=== PATIENT | male | born 1940 | race Caucasian/White ===

== ENCOUNTER → 2016-08-18 | Outpatient (CLI) | payer BC ==
[~2016-08-18] MED LIST: ACET-1256 PO; ACET-24 PO; ASPEC325 PO; CIPR-255 PO; CLB100 PO; CYAN500T13 PO; IBUP-1050 PO; IRON PO; LISI20TA55 PO; MORP-157 PO; MULT-506 PO; PRLSR20 PO; RXC5 PO; TRAM-10 PO
[2016-08-18 10:44] LABS: BASO % 0.2 %; BASO ABS # 0.01 K/uL (0-0.2); COMPLETE YES; EOS % 7.7 %; HEMATOCRIT 40.6 % (42-52); IG% 0.2 %; LYMPH % 27.1 %; LYMPH ABS # 1.66 K/uL (1.2-3.4); MEAN CELL VOLUME 92.9 fL (80-100); MEAN CORPUSCULAR HEMOGLOBIN 32.5 pg (25-34); MEAN PLATELET VOLUME 9.5 fL (7.4-10.4); MONO % 9.1 %; NEUT % 55.7 %; PLATELET COUNT 216 K/uL (130-400); RED BLOOD COUNT 4.37 M/uL (4.7-6.1); WHITE BLOOD COUNT 6.13 K/uL (4.8-10.8)
[2016-08-18 10:56] LABS: CALCIUM 9.3 mg/dl (8.5-10.1)
[2016-08-18 10:58] LABS: ALT/SGPT 31 U/L (12-78); BLOOD UREA NITROGEN 20 mg/dl (7-18); CARBON DIOXIDE 32 mmol/L (21-32); CHLORIDE 102 mmol/L (98-107); CHOLESTEROL 192 mg/dl (0-200); CREATININE 0.88 mg/dl (0.60-1.40); GLUCOSE 101 mg/dl (70-99); POTASSIUM 4.8 mmol/L (3.5-5.1); SODIUM 138 mmol/L (136-145); TRIGLYCERIDES 102 mg/dl (0-150); VERY LOW DENSITY LIPOPROT CALC 20 mg/dl
[2016-08-18 11:00] LABS: ALB/GLOB RATIO 1.4 (0.9-2); ALKALINE PHOSPHATASE 121 U/L (45-117); AST/SGOT 26 U/L (15-37); HDL CHOLESTEROL 65 mg/dl; LDL CHOLESTEROL CALCULATED 107 mg/dl
== END | disposition home or self-care (01) ==
LOC: C.LABBC 08:54
PROVIDERS: ATTEND Nurse Practitioner Family
DX: I10 Essential (primary) hypertension (principal); K21.9 Gastro-esophageal reflux disease without esophagitis; E78.5 Hyperlipidemia, unspecified; M25.562 Pain in left knee; E66.9 Obesity, unspecified

== ENCOUNTER 2016-10-21 08:37 | Inpatient (IN) | payer BC, OTHER ==
[2016-09-25 09:27] VITALS: BMI 33.0
--- NOTE | 2016-09-25 09:56 | PAT Medication Instructions ---
Service Date Sep 25, 2016. Current Home Medication List Acetaminophen (Tylenol), 2 TAB PO BID PRN for Pain Celecoxib (Celebrex), 1 CAP PO BID Cyanocobalamin (Vitamin B12 500MCG), 1,000 MCG PO QAM Lisinopril/Hctz (Prinzide 20-25MG), 1 TAB PO QAM Multivitamin (Multivitamin), 1 TAB PO QAM Omeprazole (Prilosec), 20 MG PO QAM Tramadol (Ultram), 1-2 TAB PO Q4-6 hr PRN for Pain Medication Instructions For Your Scheduled Surgery - Hold the following medications the morning of surgery: Cyanocobalamin (Vitamin B12 500MCG), 1,000 MCG PO QAM Lisinopril/Hctz (Prinzide 20-25MG), 1 TAB PO QAM Multivitamin (Multivitamin), 1 TAB PO QAM Celecoxib (Celebrex), 1 CAP PO BID (otherwise okay to continue per surgeon) - Take the following medications the morning of surgery with a sip of water OTHERWISE NOTHING TO EAT OR DRINK AFTER MIDNIGHT: Tramadol (Ultram), 1-2 TAB PO Q4-6 hr PRN for Pain (may take if needed up to 4 hours prior to surgery) Acetaminophen (Tylenol), 2 TAB PO BID PRN for Pain (may take if needed up to 4 hours prior to surgery) Omeprazole (Prilosec), 20 MG PO QAM - Take the following medications as scheduled the night before surgery: Tramadol (Ultram), 1-2 TAB PO Q4-6 hr PRN for Pain Acetaminophen (Tylenol), 2 TAB PO BID PRN for Pain If you have any questions please call us at [phone] or [phone] or [phone]
[2016-09-25 10:31] LABS: COMPLETE YES; EOS % 4.2 %; HEMATOCRIT 37.1 % (42-52); IG% 0.2 %; LYMPH % 29.5 %; LYMPH ABS # 1.41 K/uL (1.2-3.4); MEAN CELL VOLUME 94.2 fL (80-100); MEAN CORPUSCULAR HEMOGLOBIN 32.7 pg (25-34); MEAN CORPUSCULAR HGB CONC 34.8 g/dl (32-36); MEAN PLATELET VOLUME 8.9 fL (7.4-10.4); MONO % 5.4 %; NEUT % 60.7 %; PLATELET COUNT 187 K/uL (130-400); RED BLOOD COUNT 3.94 M/uL (4.7-6.1); WHITE BLOOD COUNT 4.78 K/uL (4.8-10.8)
--- NOTE | 2016-09-25 10:34 | DIAGNOSTIC IMAGING REPORT ---
CHEST 2 VIEWS ROUTINE HISTORY: Preop. COMPARISON: Chest 07/19/2015. FINDINGS: The lungs are clear. Moderate hiatus hernia, unchanged. The heart is normal in size. No pleural effusions. No pneumothorax. IMPRESSION: No acute process within the chest. Moderate hiatus hernia, unchanged. Electronically signed by: Troy Huang M.D. 09/25/2016 10:33 AM Dictated Date/Time: 09/25/2016 10:31 AM
[2016-09-25 10:38] LABS: BUN/CREATININE RATIO 26.4 (10-20); CALCIUM 8.2 mg/dl (8.5-10.1); POTASSIUM 4.4 mmol/L (3.5-5.1)
[2016-09-25 10:41] LABS: PARTIAL THROMBOPLASTIN RATIO 1.1; PROTHROMBIN TIME (PATIENT) 10.6 SECONDS (9.0-12.0)
--- NOTE | 2016-10-16 10:16 | History and Physical ---
History & Physical Documentation Date Oct 16, 2016. Chief Complaint Left knee pain HPI (Knee Pain) Pain Location: Anterior knee, Medial knee Duration: Years Adversely Affecting: ADL's, Recreation Symptoms Include: + Pain, + Giving way History of Injury/Trauma: No Non-Surgical Therapies: Behavior modification, Exercise program Mechanical Assistive Devices: none Joint Injection: Steroid Prior Orthopedic Procedures: None Past Medical/Surgical History 1. HTN 2. GERD 3. Hiatal Hernia 4. Skin Cancer 5. Hx of Prostate Surgery 6. Skin graft to forehead Additional History Hepatic Disease: No Endocrine Disorder: No Kidney Disease: No Hypertension: Yes Heart Disease: No Bleeding Tendencies: No Infectious Diseases: No Family History No Heart disease, No Pulmonary disease, No Anesthesia difficulties, No Bleeding tendencies Social History Smoking Status: Never Smoker Smokeless Tobacco Use: No Drug Use: none Occupational Status: retired Allergies Coded Allergies: No Known Allergies (Unverified , 09/25/16) Home Medications Scheduled Celecoxib (Celebrex), 1 CAP PO BID Cyanocobalamin (Vitamin B12 500MCG), 1,000 MCG PO QAM Lisinopril/Hctz (Prinzide 20-25MG), 1 TAB PO QAM Multivitamin (Multivitamin), 1 TAB PO QAM Omeprazole (Prilosec), 20 MG PO QAM Scheduled PRN Acetaminophen (Tylenol), 2 TAB PO BID PRN for Pain Tramadol (Ultram), 1-2 TAB PO Q4-6 hr PRN for Pain Review of Systems Constitutional: No fever, No chills, No sweats, No weight loss, No weakness, No fatigue, No problem reported Respiratory: No cough, No sputum, No wheezing, No shortness of breath, No dyspnea on exertion, No dyspnea at rest, No hemoptysis, No problem reported Cardiovascular: No chest pain, No orthopnea, No PND, No edema, No claudication , No palpitations, No problem reported Abdomen: No pain, No nausea, No vomiting, No diarrhea, No constipation, No GI bleeding, No problem reported Musculoskeletal: No joint pain, No muscle pain, No swelling, No calf pain, No problem reported Neurologic: No memory loss, No paralysis, No weakness, No numbness/tingling, No vertigo, No balance problems, No problem reported Physical Exam Skin: warm/dry Eyes: normal inspection ENT: normal ENT inspection Head: normocephalic Neck: supple, no adenopathy, trachea midline Respiratory/Chest: lungs clear Cardiovascular: regular rate, rhythm, no murmur Abdomen / GI: normal bowel sounds Back: normal inspection Neurovascular: Normal perfusion, Normal sensation, Normal motor strength Neurologic/Psych: no motor/sensory deficits Physical Exam (Knee) Inspection: + Effusion Gait: + Limp (5-120 degrees) Alignment: + Genu varum Stability: No Dipti, No Anterior drawer, No Varus laxity, No Rotational laxity, No Posterior drawer, No Valgus laxity, No pertinent finding Tenderness: Medial joint line Radiology Plain Films: Osteophytes, Subchondral sclerosis Plain Films Joint Space: [id number], Severe narrowing Diagnosis & Plan Diagnosis & Plan (1) Left Knee DJD Plan: TKA (Left TKR)
[2016-10-21] VITALS (9 sets, daily range): BP systolic 112–156; BP diastolic 69–99; PULSE 58–76; TEMP 36.3–36.6; O2SAT 95–100; Ht 177.8 cm; Wt 106.2 kg
[~2016-10-21] VITALS: Ht 177.8 cm; Wt 106.2 kg
[~2016-10-21 08:37] MED LIST changes: -ACET-24 PO; +ACETAMINOPHEN 500 MG TAB PO SCH; -ASPEC325 PO; +BUPIVACAINE 0.5 % 5 MG/1 ML PF 10ML VIAL ONE; +BUPIVACAINE LIPOSOME 266 MG, BUPIVACAINE/EPINEPHRINE INJ 50 ML, SODIUM CHLORIDE 0.9% PF... INFIL SCH; +CEFAZOLIN 2000 MG/60 ML D5W 60 ML IV SCH; -CIPR-255 PO; +FAMOTIDINE 20 MG TAB PO SCH; +GABAPENTIN 300 MG CAP PO SCH; -IBUP-1050 PO; -IRON PO; +LACTATED RINGER'S 1000ML 1,000 ML IV SCH; +LACTATED RINGER'S 1000ML 500 ML IV ONE; +LACTATED RINGER'S 1000ML IV SCH; +METOCLOPRAMIDE HCL 10 MG TAB PO SCH; -MORP-157 PO; +ROPIVACAINE 0.5% 5 MG/ML 30 ML VIAL ONE; -RXC5 PO; +SCOPOLAMINE 1.5 MG TDSY TD SCH; +TRANEXAMIC ACID INJ 1,000 MG in SODIUM CHLORIDE 0.9% 100ML 100 ML IV SCH
--- NOTE | 2016-10-21 08:50 | History & Physical Bridge Note ---
H&P Re-Evaluation Bridge Note: I have examined the patient, reviewed the History & Physical and in the interval since the performance of the History & Physical I have noted the following changes of clinical significance: No changes noted
[2016-10-21] MEDS ORDERED: ONDANSETRON INJ 2 MG/ML 2 ML VIAL ONE (09:46)
[2016-10-21] MEDS ORDERED: FENTANYL CITRATE INJ 50 MCG/1 ML 2 ML VIAL ONE (09:46)
[2016-10-21] MEDS ORDERED: MIDAZOLAM HCL 1 MG/ML 2ML VIAL ONE (09:46)
[2016-10-21] MEDS ORDERED: PROPOFOL IV EMULSION 10 MG/ML 20 ML VIAL IV ONE (09:46)
[2016-10-21] MEDS ORDERED: SODIUM CHLORIDE 0.9% PF 50 ML VIAL ONE (11:04)
[2016-10-21] MEDS ORDERED: BACITRACIN 50000 UNIT VIAL ONE (11:04)
[2016-10-21] MEDS ORDERED: BUPIVACAINE LIPOSOME 1/3% 266 MG/20 ML VIAL INFIL ONE (11:04)
[2016-10-21] MEDS ORDERED: BUPIVACAINE/EPINEPHRINE 0.25% 1:200,000 30 ML VIAL ONE (11:04)
[2016-10-21] MEDS ORDERED: PHENYLEPHRINE 100MCG/ML 5ML SYR IV PRN (11:15)
[2016-10-21] MEDS ORDERED: HYDROmorphone INJ 2 MG/ML SYR/VIAL IV PRN (11:15)
[2016-10-21] MEDS ORDERED: EpHEDrine SULFATE INJ 50 MG/ML AMP IV PRN (11:15)
[2016-10-21] MEDS ORDERED: ONDANSETRON INJ 2 MG/ML 2 ML VIAL IV PRN ×2 (11:15→13:15)
[2016-10-21] MEDS ORDERED: ATROPINE SULFATE 0.1 MG/ML 5ML SYR IV PRN (11:15)
--- NOTE | 2016-10-21 13:11 | [facility] Post Operative Brief Note ---
Immediate Operative Summary Operative Date Oct 21, 2016. Pre-Operative Diagnosis Left Knee Advanced Degenerative Joint Disease Post-Operative Diagnosis Left Knee Advanced Degenerative Joint Disease Procedure(s) Performed Left Total Knee Arthroplasty Surgeon Dr. Azul Payer Specialist Surgeon(s) MAGDALENA Leach Estimated Blood Loss 50 ml Findings Left Knee DJD Fluids (cc crystalloids) 1300 cc Specimens A. Left Knee Bone and Tissue Drains None Anesthesia Spinal Complication(s) None Disposition Recovery Room / PACU
[2016-10-21] MEDS ORDERED: BISACODYL 10 MG SUPP PR PRN (13:15)
[2016-10-21] MEDS ORDERED: TAMSULOSIN HCL 0.4 MG CAP PO PRN (13:15)
[2016-10-21] MEDS ORDERED: HYDROmorphone INJ 0.5 MG/0.5 ML SYR IV PRN (13:15)
[2016-10-21] MEDS ORDERED: MAGNESIUM HYDROXIDE SUSP 30 ML UDC PO PRN (13:15)
[2016-10-21] MEDS ORDERED: SILVER SULFADIAZINE 1% CR 50 GM JAR EXT PRN (13:15)
[2016-10-21] MEDS ORDERED: ALUMINUM/MAGNESIUM/SIMETH (MAALOX MAX) 30 ML UDC PO PRN (13:15)
[2016-10-21] MEDS ORDERED: ZOLPIDEM TARTRATE 5 MG TAB PO PRN (13:15)
[2016-10-21] MEDS ORDERED: METOCLOPRAMIDE HCL INJ 5 MG/ML 2 ML VIAL IV PRN (13:15)
--- NOTE | 2016-10-21 13:54 | DIAGNOSTIC IMAGING REPORT ---
LEFT KNEE 1 OR 2 VIEWS ROUTINE CLINICAL HISTORY: Postoperative evaluation. COMPARISON: Left knee radiographs October 15, 2016. FINDINGS: Alignment of the total left knee arthroplasty is anatomic. There is no fracture or unexpected radiopaque foreign body. Skin karena are present. IMPRESSION: Expected findings following total left knee arthroplasty. Electronically signed by: Jules Lara M.D. 10/21/2016 1:53 PM Dictated Date/Time: 10/21/2016 1:52 PM
--- NOTE | 2016-10-21 13:58 | Anesthesiology Progress Note ---
Anesthesia Post Op Note Date & Time Oct 21, 2016 at 13:58 Vital Signs Pain Intensity: 0 Vital Signs Past 12 Hours Date Time Temp Pulse Resp B/P (MAP) Pulse Ox O2 Delivery O2 Flow Rate FiO2 10/21/16 13:50 36.8 59 16 107/66 99 Mask 2 10/21/16 13:48 59 12 99 10/21/16 13:48 59 12 10/21/16 13:47 112/65 10/21/16 13:43 60 11 99 10/21/16 13:43 60 11 10/21/16 13:42 117/70 10/21/16 13:41 60 11 10/21/16 13:41 60 11 100 10/21/16 13:36 61 11 113/67 98 10/21/16 13:36 61 11 10/21/16 13:35 61 11 98 10/21/16 13:35 61 11 10/21/16 13:31 114/65 10/21/16 13:30 62 14 98 10/21/16 13:30 63 14 10/21/16 13:27 107/64 10/21/16 13:25 63 17 10/21/16 13:25 63 17 98 10/21/16 13:22 111/66 10/21/16 13:20 64 16 10/21/16 13:20 64 16 99 10/21/16 13:16 111/63 10/21/16 13:15 36.2 65 16 111/63 94 Mask 10 10/21/16 08:55 36.6 76 20 148/91 99 Room Air Notes Mental Status: alert / awake / arousable, participated in evaluation Pt Amnestic to Procedure: Yes Nausea / Vomiting: adequately controlled Pain: adequately controlled Airway Patency, RR, SpO2: stable & adequate BP & HR: stable & adequate Hydration State: stable & adequate Anesthetic Complications: no major complications apparent
[2016-10-21] MEDS: D5W AND 1/2NSS + 20MEQ KCL 1,000 ML IV SCH ×2 (15:48→22:21)
[2016-10-21] MEDS: CHECK SCOPOLAMINE PATCH PLACEMENT SCH (15:49)
[2016-10-21] MEDS: ACETAMINOPHEN 500 MG TAB PO SCH ×2 (15:49→22:22)
--- NOTE | 2016-10-21 17:37 | Progress Note ---
Orthopedic SOAP Note Subjective Date of Service: Oct 21, 2016. Post OP Day: Post-op from Left TKR Reports: feeling well, pain controlled w PO medications Additional Notes: No chest pain or SOB. Objective calves soft nontender, N/V intact, capillary refill less than 2 sec., dressing C /D/I, A&O x3, toes mobile, CMS intact Date Time Temp Pulse Resp B/P (MAP) Pulse Ox O2 Delivery O2 Flow Rate FiO2 10/21/16 16:38 36.3 67 18 113/76 (88) 98 Nasal Cannula 2.0 10/21/16 15:23 66 18 119/72 (88) 10/21/16 15:15 Nasal Cannula 2.0 10/21/16 14:48 Nasal Cannula 2.0 10/21/16 14:40 36.3 66 18 112/69 (83) 98 Nasal Cannula 2.0 10/21/16 13:59 59 18 10/21/16 13:59 60 18 97 10/21/16 13:57 121/78 10/21/16 13:54 59 12 10/21/16 13:54 59 12 100 10/21/16 13:51 107/66 10/21/16 13:50 36.8 59 16 107/66 99 Mask 2 10/21/16 13:49 59 12 99 10/21/16 13:49 59 12 10/21/16 13:48 59 12 99 10/21/16 13:48 59 12 10/21/16 13:47 112/65 10/21/16 13:43 60 11 99 10/21/16 13:43 60 11 10/21/16 13:42 117/70 10/21/16 13:41 60 11 17 13:41 60 11 100 10/21/16 13:36 61 11 113/67 98 10/21/16 13:36 61 11 17 13:35 61 11 98 17 13:35 61 11 17 13:31 114/65 1817 13:30 62 14 98 18/ 13:30 63 14 10/21/16 13:27 107/64 10/21/16 13:25 63 17 10/21/16 13:25 63 17 98 10/21/16 13:22 111/66 10/21/16 13:20 64 16 10/21/16 13:20 64 16 99 10/21/16 13:16 111/63 10/21/16 13:15 36.2 65 16 111/63 94 Mask 10 10/21/16 08:55 36.6 76 20 148/91 99 Room Air Additional Notes: x-rays from recovery room show TKR in good position. No problems. Suggests some lateral laxity that was known and expected. Assessment Post-op from Left TKR. Pain controlled. N/V intact. Plan 1) DVT prophylaxis - TEDs + SDCs + ECASA 2) IV antibiotics for 24 hours. 3) Pain control - doing well with current regimine 4) PT/OT - Left TKR Protocol 5) Disposition - plan to d/c to home with home health once recovered.
[2016-10-21] MEDS: KETOROLAC TROMETHAMINE 15 MG/ML VIAL IV. SCH (18:34)
[2016-10-21] MEDS: FERROUS GLUCONATE 324 MG TAB PO SCH (18:34)
[2016-10-21] MEDS: OXYCODONE HCL IR 5 MG TAB (IMMEDIATE RELEASE) PO PRN ×2 (18:35→22:34)
[2016-10-21] MEDS: CEFAZOLIN IV 2,000 MG in DEXTROSE 5% 50ML 50 ML IV SCH (18:39)
[2016-10-21] MEDS ORDERED: TRANEXAMIC ACID INJ 1,000 MG in SODIUM CHLORIDE 0.9% 100ML 100 ML IV SCH (19:00)
[2016-10-21] MEDS: TAPENTADOL ER 50 MG TABCR PO SCH (21:01)
[2016-10-21] MEDS: ASPIRIN 325 MG ECTAB PO SCH (21:02)
[2016-10-21] MEDS: SENNA 8.6 MG TAB PO SCH (21:02)
[2016-10-21] MEDS: DOCUSATE SODIUM 100 MG CAP PO SCH (21:02)
[2016-10-22] MEDS: CHECK SCOPOLAMINE PATCH PLACEMENT SCH ×4 (00:01→23:31)
[2016-10-22] MEDS: KETOROLAC TROMETHAMINE 15 MG/ML VIAL IV. SCH ×5 (00:01→23:30)
[2016-10-22] MEDS: CEFAZOLIN IV 2,000 MG in DEXTROSE 5% 50ML 50 ML IV SCH (03:23)
[2016-10-22 03:37] VITALS: BP 148/85; PULSE 71; TEMP 36.6; O2SAT 98
[2016-10-22] MEDS: OXYCODONE HCL IR 5 MG TAB (IMMEDIATE RELEASE) PO PRN ×4 (05:27→20:18)
[2016-10-22] MEDS: D5W AND 1/2NSS + 20MEQ KCL 1,000 ML IV SCH ×3 (05:27→18:38)
[2016-10-22] MEDS: ACETAMINOPHEN 500 MG TAB PO SCH ×3 (05:28→21:30)
[2016-10-22 07:24] LABS: MEAN CELL VOLUME 93.4 fL (80-100); MEAN CORPUSCULAR HEMOGLOBIN 31.6 pg (25-34); MEAN CORPUSCULAR HGB CONC 33.8 g/dl (32-36); MEAN PLATELET VOLUME 8.6 fL (7.4-10.4); PLATELET COUNT 157 K/uL (130-400); RED BLOOD COUNT 3.64 M/uL (4.7-6.1)
[2016-10-22 07:41] LABS: BUN/CREATININE RATIO 13.9 (10-20); CALCIUM 7.9 mg/dl (8.5-10.1); CREATININE 1.1 mg/dl (0.60-1.40); POTASSIUM 4.2 mmol/L (3.5-5.1)
--- NOTE | 2016-10-22 08:06 | Anesthesiology Progress Note ---
Anesthesia Post Op Note Date & Time Oct 22, 2016 at 08:06 Vital Signs Pain Intensity: 6.0 Vital Signs Past 12 Hours Date Time Temp Pulse Resp B/P (MAP) Pulse Ox O2 Delivery O2 Flow Rate FiO2 10/22/16 03:37 36.6 71 16 148/85 (106) 98 Room Air 10/22/16 00:00 Room Air 10/21/16 22:45 36.5 66 18 143/76 (98) 98 Room Air Notes Mental Status: alert / awake / arousable, participated in evaluation Pt Amnestic to Procedure: Yes Nausea / Vomiting: adequately controlled Pain: adequately controlled Airway Patency, RR, SpO2: stable & adequate BP & HR: stable & adequate Hydration State: stable & adequate Anesthetic Complications: no major complications apparent
[2016-10-22 08:18] VITALS: BP 138/71; PULSE 77; TEMP 36.8; O2SAT 97
--- NOTE | 2016-10-22 08:32 | Progress Note ---
Orthopedic SOAP Note Subjective Date of Service: Oct 22, 2016. Post OP Day: POD #1 - Left TKR Reports: feeling well, pain controlled w PO medications Additional Notes: No chest pain or SOB Objective calves soft nontender, N/V intact, capillary refill less than 2 sec., dressing C /D/I, A&O x3, toes mobile, CMS intact Date Time Temp Pulse Resp B/P (MAP) Pulse Ox O2 Delivery O2 Flow Rate FiO2 10/22/16 08:18 36.8 77 18 138/71 (93) 97 Room Air 10/22/16 03:37 36.6 71 16 148/85 (106) 98 Room Air 10/22/16 00:00 Room Air 10/21/16 22:45 36.5 66 18 143/76 (98) 98 Room Air 10/21/16 19:58 36.6 64 18 145/86 (105) 95 Room Air 10/21/16 19:00 97 Room Air 10/21/16 17:40 36.3 59 18 156/99 (118) 100 Nasal Cannula 2.0 10/21/16 16:38 36.3 67 18 113/76 (88) 98 Nasal Cannula 2.0 10/21/16 15:40 36.3 58 16 118/73 (88) 99 Nasal Cannula 2.0 10/21/16 15:23 66 18 119/72 (88) 10/21/16 15:15 Nasal Cannula 2.0 10/21/16 14:48 Nasal Cannula 2.0 10/21/16 14:40 36.3 66 18 112/69 (83) 98 Nasal Cannula 2.0 10/21/16 13:59 59 18 10/21/16 13:59 60 18 97 10/21/16 13:57 121/78 10/21/16 13:54 59 12 10/21/16 13:54 59 12 100 10/21/16 13:51 107/66 10/21/16 13:50 36.8 59 16 107/66 99 Mask 2 10/21/16 13:49 59 12 99 10/21/16 13:49 59 12 10/21/16 13:48 59 12 99 10/21/16 13:48 59 12 10/21/16 13:47 112/65 10/21/16 13:43 60 11 99 10/21/16 13:43 60 11 10/21/16 13:42 117/70 10/21/16 13:41 60 11 10/21/16 13:41 60 11 100 10/21/16 13:36 61 11 113/67 98 10/21/16 13:36 61 11 10/21/16 13:35 61 11 98 10/21/16 13:35 61 11 10/21/16 13:31 114/65 10/21/16 13:30 62 14 98 10/21/16 13:30 63 14 10/21/16 13:27 107/64 10/21/16 13:25 63 17 10/21/16 13:25 63 17 98 10/21/16 13:22 111/66 10/21/16 13:20 64 16 10/21/16 13:20 64 16 99 10/21/16 13:16 111/63 10/21/16 13:15 36.2 65 16 111/63 94 Mask 10 10/21/16 08:55 36.6 76 20 148/91 99 Room Air Laboratory Results 24 Hours: Test 10/22/16 07:13 Hematocrit 34.0 % Hemoglobin 11.5 g/dL Assessment Post-op from Left TKR. Pain controlled. N/V intact. Plan 1) DVT prophylaxis - TEDs + SDCs + ECASA 2) IV antibiotics for 24 hours. 3) Pain control - doing well with current regimine 4) PT/OT - Left TKR Protocol 5) Disposition - plan to d/c to home with home health once recovered.
[2016-10-22] MEDS: MULTIVITAMIN TAB PO SCH (08:34)
[2016-10-22] MEDS: FERROUS GLUCONATE 324 MG TAB PO SCH ×3 (08:34→17:33)
[2016-10-22] MEDS: LISINOPRIL/HCTZ 20/25MG TAB PO SCH (08:34)
[2016-10-22] MEDS: PANTOprazole SOD 40 MG TAB PO SCH (08:34)
[2016-10-22] MEDS: ASPIRIN 325 MG ECTAB PO SCH ×2 (08:34→20:51)
[2016-10-22] MEDS: CYANOCOBALAMIN 500 MCG TAB (VIT B-12) PO SCH (08:34)
[2016-10-22] MEDS: TAPENTADOL ER 50 MG TABCR PO SCH ×2 (08:35→20:57)
[2016-10-22] MEDS ORDERED: RXC5 PO (08:35)
[2016-10-22] MEDS: DOCUSATE SODIUM 100 MG CAP PO SCH ×2 (08:35→20:51)
[2016-10-22] MEDS ORDERED: ACET-24 PO (08:35)
[2016-10-22] MEDS ORDERED: ASPEC325 PO (08:35)
[2016-10-22] MEDS ORDERED: MORP-157 PO (08:35)
--- NOTE | 2016-10-22 08:36 | Discharge Instructions ---
Discharge Instructions Date of Service Oct 22, 2016. Admission Reason for Admission: Left Knee Degenerative Joint Disease Discharge Discharge Diagnosis / Problem: Left Knee REplacement Discharge Goals Goal(s): Decrease discomfort, Improve function, Increase independence, Improve disease control, Therapeutic intervention Activity Recommendations Activity Limitations: per Instructions/Follow-up section Weightbearing Status: Left weightbearing . Instructions / Follow-Up Instructions / Follow-Up ACTIVITY RECOMMENDATIONS: Physical Therapy: * You will go to physical therapy three times each week for four to six weeks after your surgery in order to regain your knee range of motion and to retrain your knee to work properly. * It is just as important to make sure you are getting your knee perfectly straight as it is to regain your knee bend. * Taking a pain pill an hour before therapy can help you have a more productive and comfortable therapy session. Home Exercise: * You were shown a series of exercises (heel props, heel slides, etc.) in the hospital. Do these exercises three to four times each day including the exercises you were shown in physical therapy. Walking: * Get up and walk several times each day. For the first four weeks, try not to stand or walk for more than one hour at a time. If you do stand or walk for more than one hour, you will not hurt anything, but your knee and leg will likely swell. * As you feel comfortable, you may change from the walker or crutches to a cane and then to independent walking. MEDICATIONS: New Medicine: * You will likely be taking one or more of these medications: 1. MS Contin - A long-acting pain medication. Take 1 tablet twice a day for the first ten days to decrease your baseline level of pain. 2. Oxycodone - A quick and shorter-acting pain medication. Take one to two tablets every four to six hours to lessen your pain. 3. Aspirin - Thins your blood to lessen the chance of forming a blood clot. * The most common side effects of pain medicine and iron are nausea and constipation. If nausea or constipation is too much of a problem or if you have any questions about your new medicines or doses, call [facility] at . We will try to help you manage these issues. VERY IMPORTANT TO READ AND REVIEW" Pain: * The immediate post-operative period after knee replacement surgery is often quite painful. * You are given a prescription for pain medicine. You should take it, as directed, when you need it, especially before physical therapy and before going to bed. Pain that interferes with sleep is very common and can last several months. * You will likely need pain medicine for the first four to six weeks. It will not stop all of the pain. The pain will lessen and as you feel better, you may change to milder pain medicine such as Tylenol. * The most common side effects of pain medicine are nausea and constipation, so don't take more than you need. SPECIAL CARE INSTRUCTIONS: TEDs/Elastic Stockings: * The white elastic stockings help limit swelling and prevent blood clots from forming in your legs. The more you wear them, the more they work. * Wear them for six weeks after knee replacement surgery and four weeks after partial knee replacement. Prevention of Infection: * Take antibiotics one hour before any dental cleaning, dental work, urological procedure, gastrointestinal procedure or any invasive surgery in order to prevent your new joint from getting infected. * You may get the antibiotics from the doctor performing the procedure or you may call our office at before and we will call in a prescription to the pharmacy of your choice. Things to Watch For: * Drainage from the incision site that occurs more than one week after your surgery. * Severely increased knee/leg pain or swelling. * Increased redness at the incision site. * Fever above 102 degrees Fahrenheit. * Unusual chest pain or shortness of breath. * Unusual pain or burning with urination. Call [facility] at with any of the above problems or if you have any questions about your medicines or recovery. FOLLOW UP VISIT: Make an appointment to see your doctor for approximately two weeks after surgery for a progress check and staple removal by calling the office at . Current Hospital Diet Patient's current hospital diet: Regular Diet Discharge Diet Recommended Diet: Regular Diet Procedures Procedures Performed: Left Total Knee Arthroplasty Pending Studies Studies pending at discharge: no Laboratory Results Lipid Panel Test 08/18/16 08:59 Range/Units Triglycerides Level 102 0-150 mg/dl Cholesterol Level 192 0-200 mg/dl HDL Cholesterol 65 mg/dl Cholesterol/HDL Ratio 3.0 LDL Cholesterol, Calculated 107 mg/dl Medical Emergencies . Who to Call and When: Medical Emergencies: If at any time you feel your situation is an emergency, please call 911 immediately. . Non-Emergent Contact Non-Emergency issues call your: Surgeon . "Provider Documentation" section prepared by Julian Azul. . VTE Core Measure Inpt VTE Proph given/why not?: Other Anticoagulation, T.E.D. Stockings, SCD's
[2016-10-22] MEDS ORDERED: NON-FORMULARY MEDICATION (Omeprazole (Prilosec) 20 MG) PO SCH (09:00)
[2016-10-22] MEDS ORDERED: MULTIVITAMIN TAB PO SCH (09:00)
[2016-10-22 11:19] VITALS: BP 133/67; PULSE 98; O2SAT 94
[2016-10-22 13:55] VITALS: BP 156/84; PULSE 86; TEMP 37.6; O2SAT 94
[2016-10-22 15:40] VITALS: BP 138/82; PULSE 87; TEMP 37.1; O2SAT 93
[2016-10-22] MEDS: SENNA 8.6 MG TAB PO SCH (21:28)
[2016-10-22] MEDS ORDERED: NURSING VERBAL MED ORDER ONE (22:00)
[2016-10-22 23:45] VITALS: BP 130/73; PULSE 66; TEMP 37.2; O2SAT 95
[2016-10-23] MEDS: KETOROLAC TROMETHAMINE 15 MG/ML VIAL IV. SCH (05:43)
[2016-10-23] MEDS: ACETAMINOPHEN 500 MG TAB PO SCH (05:43)
[2016-10-23 06:28] VITALS: BP 131/74; PULSE 72; TEMP 36.8; O2SAT 94
[2016-10-23] MEDS: OXYCODONE HCL IR 5 MG TAB (IMMEDIATE RELEASE) PO PRN (07:24)
--- NOTE | 2016-10-23 07:36 | Progress Note ---
Orthopedic SOAP Note Subjective Date of Service: Oct 23, 2016. Post OP Day: POD #2 - Left TKR Reports: feeling well, pain controlled w PO medications Objective calves soft nontender, N/V intact, capillary refill less than 2 sec., dressing C /D/I, incision C/D/I, A&O x3, toes mobile, CMS intact Date Time Temp Pulse Resp B/P (MAP) Pulse Ox O2 Delivery O2 Flow Rate FiO2 10/23/16 07:25 Room Air 10/23/16 06:28 36.8 72 15 131/74 (93) 94 Room Air 10/22/16 23:45 37.2 66 16 130/73 (92) 95 Room Air 10/22/16 23:30 Room Air 10/22/16 20:10 Room Air 10/22/16 16:00 Room Air 10/22/16 15:40 37.1 87 16 138/82 (100) 93 Room Air 10/22/16 13:55 37.6 86 16 156/84 (108) 94 Room Air 10/22/16 11:19 98 94 10/22/16 08:18 36.8 77 18 138/71 (93) 97 Room Air 10/22/16 07:39 Room Air Assessment Post-op Day #2 from Left TKR. Pain controlled. N/V intact. Plan 1) DVT prophylaxis - TEDs + SDCs + ECASA 2) IV antibiotics for 24 hours. Completed. 3) Pain control - doing well with current regimine 4) PT/OT - Left TKR Protocol 5) Disposition - plan to d/c to home with home health once recovered.
[2016-10-23] MEDS: TAPENTADOL ER 50 MG TABCR PO SCH (09:28)
[2016-10-23] MEDS: LISINOPRIL/HCTZ 20/25MG TAB PO SCH (09:29)
[2016-10-23] MEDS: FERROUS GLUCONATE 324 MG TAB PO SCH (09:29)
[2016-10-23] MEDS: MULTIVITAMIN TAB PO SCH (09:29)
[2016-10-23] MEDS: CYANOCOBALAMIN 500 MCG TAB (VIT B-12) PO SCH (09:29)
[2016-10-23] MEDS: PANTOprazole SOD 40 MG TAB PO SCH (09:30)
[2016-10-23] MEDS: ASPIRIN 325 MG ECTAB PO SCH (09:51)
[2016-10-23] MEDS: DOCUSATE SODIUM 100 MG CAP PO SCH (09:51)
[2016-10-23 09:56] VITALS: BP 131/74; PULSE 72; TEMP 36.8; O2SAT 94
--- NOTE | 2016-10-30 15:40 | DISCHARGE SUMMARY ---
ADMITTING PHYSICIAN AND SURGEON: Dr. Azul. ADMITTING DIAGNOSIS: Left knee degenerative joint disease. SURGERY PERFORMED: Left total knee arthroplasty. SECONDARY DIAGNOSES: Hypertension, GERD, hiatal hernia, skin cancer, history of prostate surgery and skin grafting. CONSULTS: None obtained. HISTORY AND PHYSICAL EXAMINATION: Well documented in the patient's chart. HOSPITAL COURSE: The patient was admitted on 10/21/2016 underwent total knee arthroplasty, tolerated the procedure well. There were no complications. He was transferred to the PACU postoperatively and later to the orthopedic floor for further care. He was given Ancef for antibiotic prophylaxis, ROBERTO stockings, SCDs and aspirin for DVT prophylaxis. Hemoglobin, hematocrit and vital signs were monitored during his hospital stay and remained stable. He developed some mild postoperative anemia, did not require any blood transfusions. There were no complications. By postoperative day 2 he was tolerating a general diet, pain was controlled with oral pain medicine. He was participating in physical therapy and had no signs or symptoms of deep vein thrombosis. On postop day 2 he was discharged home and set up with home health services, given printed discharge instructions including new prescriptions for extra strength Tylenol, aspirin 325 mg b.i.d., MS Contin and oxycodone. Continue his home medicines with the exception of his home dose of Tylenol, which was changed. Continue physical therapy, weightbearing as tolerated, ROBERTO stockings. Follow up in 10-12 days or sooner if there are problems or concerns.
== END 2016-10-23 10:37 | disposition home health service (06) | DRG 470 ==
LOC: C.ACU 08:37 → C.MSW 09:00 → ENRESERV 14:20
PROVIDERS: ADMIT Orthopaedic Surgery Sports Medicine; ATTEND Orthopaedic Surgery Sports Medicine
PROC: 0SRD0J9 Replacement of Left Knee Joint with Synthetic Substitute, Cemented, Open Approach (ICD-10-PCS; principal; 2016-10-21 10:50)
DX: M17.12 Unilateral primary osteoarthritis, left knee (principal); M25.462 Effusion, left knee; M21.162 Varus deformity, not elsewhere classified, left knee; I10 Essential (primary) hypertension; K21.9 Gastro-esophageal reflux disease without esophagitis; N40.0 Benign prostatic hyperplasia without lower urinary tract symptoms; D64.9 Anemia, unspecified; E66.9 Obesity, unspecified; Z68.33 Body mass index [BMI] 33.0-33.9, adult; Z79.1 Long term (current) use of non-steroidal anti-inflammatories (NSAID); Z79.891 Long term (current) use of opiate analgesic; Z79.899 Other long term (current) drug therapy

== ENCOUNTER → 2017-01-21 | Outpatient (CLI) | payer BC ==
[~2017-01-21] MED LIST changes: -ACET-1256 PO; +ACET-24 PO; -ACETAMINOPHEN 500 MG TAB PO SCH; +ASPEC325 PO; -BUPIVACAINE 0.5 % 5 MG/1 ML PF 10ML VIAL ONE; -BUPIVACAINE LIPOSOME 266 MG, BUPIVACAINE/EPINEPHRINE INJ 50 ML, SODIUM CHLORIDE 0.9% PF... INFIL SCH; -CEFAZOLIN 2000 MG/60 ML D5W 60 ML IV SCH; -FAMOTIDINE 20 MG TAB PO SCH; -GABAPENTIN 300 MG CAP PO SCH; -LACTATED RINGER'S 1000ML 1,000 ML IV SCH; -LACTATED RINGER'S 1000ML 500 ML IV ONE; -LACTATED RINGER'S 1000ML IV SCH; -METOCLOPRAMIDE HCL 10 MG TAB PO SCH; -ROPIVACAINE 0.5% 5 MG/ML 30 ML VIAL ONE; +RXC5 PO; -SCOPOLAMINE 1.5 MG TDSY TD SCH; -TRANEXAMIC ACID INJ 1,000 MG in SODIUM CHLORIDE 0.9% 100ML 100 ML IV SCH
[2017-01-21 11:09] LABS: BASO % 0.2 %; BASO ABS # 0.01 K/uL (0-0.2); COMPLETE YES; EOS % 5.4 %; HEMATOCRIT 40.4 % (42-52); IG% 0.2 %; LYMPH % 32.2 %; LYMPH ABS # 1.67 K/uL (1.2-3.4); MEAN CELL VOLUME 90.8 fL (80-100); MEAN CORPUSCULAR HEMOGLOBIN 31.7 pg (25-34); MEAN CORPUSCULAR HGB CONC 34.9 g/dl (32-36); MEAN PLATELET VOLUME 9.3 fL (7.4-10.4); MONO % 8.3 %; NEUT % 53.7 %; PLATELET COUNT 204 K/uL (130-400); RED BLOOD COUNT 4.45 M/uL (4.7-6.1); WHITE BLOOD COUNT 5.18 K/uL (4.8-10.8)
[2017-01-21 11:41] LABS: ALT/SGPT 29 U/L (12-78); BLOOD UREA NITROGEN 19 mg/dl (7-18); BUN/CREATININE RATIO 20.1 (10-20); CALCIUM 8.9 mg/dl (8.5-10.1); CARBON DIOXIDE 28 mmol/L (21-32); CHLORIDE 105 mmol/L (98-107); CHOLESTEROL 188 mg/dl (0-200); CREATININE 0.95 mg/dl (0.60-1.40); GLUCOSE 93 mg/dl (70-99); POTASSIUM 3.6 mmol/L (3.5-5.1); SODIUM 139 mmol/L (136-145); TRIGLYCERIDES 92 mg/dl (0-150); VERY LOW DENSITY LIPOPROT CALC 18 mg/dl
[2017-01-21 11:48] LABS: ALB/GLOB RATIO 1.1 (0.9-2); ALKALINE PHOSPHATASE 126 U/L (45-117); AST/SGOT 24 U/L (15-37); CHOLESTEROL/HDL RATIO 2.9; FERRITIN 156.7 ng/ml (8.0-388.0); HDL CHOLESTEROL 64 mg/dl; LDL CHOLESTEROL CALCULATED 106 mg/dl
== END | disposition home or self-care (01) ==
LOC: C.LABBC 08:13
PROVIDERS: ATTEND Nurse Practitioner Family
DX: I10 Essential (primary) hypertension (principal); K21.9 Gastro-esophageal reflux disease without esophagitis; D64.9 Anemia, unspecified; E78.5 Hyperlipidemia, unspecified